=== PATIENT | female | born 1965 | race Caucasian/White ===

== ENCOUNTER → 2016-06-16 | Outpatient (CLI) | payer OTHER ==
[~2016-06-16] MED LIST: AMOX500T2 PO; ASPI-730 PO; CHRO400T9; CINN500C14; FURO-154 PO; LISI2.5T2 PO; MECL-38 PO; ONDA4TAB4 PO; RIZA10TA12 PO; diflucan PO
== END ==
LOC: IMA 15:00
PROVIDERS: ATTEND Family Medicine
DX: M17.0 Bilateral primary osteoarthritis of knee (principal)